=== PATIENT | female | born 1990 | race American Indian/Alaskan Native ===

== ENCOUNTER 2016-12-01 08:01 | Emergency (ER) | payer MEDICAID ==
[2016-12-01 09:01] LABS: Basophils % (Auto) 0.3 % (0.0-1.8); Eosinophils % (Auto) 6.4 % (0.0-4.3); Hematocrit 37.8 % (30.3-42.9); Hemoglobin 12.8 gm/dl (10.1-14.3); Mean Corpuscular HGB Conc 34 % (30-34); Mean Corpuscular Hemoglobin 30 pg (28-32); Mean Corpuscular Volume 88 fl (79-97); Platelet Count 262 K/mm3 (140-440); Red Cell Distribution Width 13.1 % (13.2-15.2); White Blood Count 8.8 K/mm3 (4.5-11.0)
[2016-12-01 09:10] LABS: Alanine Aminotransferase 12 units/L (7-56); Albumin 3.6 g/dL (3.9-5); Albumin/Globulin Ratio 1.2 %; Alkaline Phosphatase 50 units/L (35-129); Anion Gap 16 mmol/L; Blood Urea Nitrogen 5 mg/dL (7-17); Calcium 8.9 mg/dL (8.4-10.2); Carbon Dioxide 24 mmol/L (22-30); Chloride 97.7 mmol/L (98-107); Glucose 81 mg/dL (65-100); Lipase 15 units/L (13-60); Potassium 3.7 mmol/L (3.6-5.0); Sodium 134 mmol/L (137-145); Total Protein 6.7 g/dL (6.3-8.2)
[2016-12-01 09:40] LABS: Bacteria,Urine 1+ /HPF (Negative); Bilirubin,Urine NEG (Negative); Blood,Urine SM (Negative); Ketones,Urine 20 mg/dL (Negative); Leukocyte Esterase,Urine TR (Negative); Mucus,Urine FEW /HPF; Nitrite,Urine NEG (Negative); Protein,Urine <15 mg/dL mg/dL (Negative); Urobilinogen,Urine < 2.0 mg/dL (<2.0)
--- NOTE | 2016-12-01 15:05 | Ultrasound Report ---
OB ULTRASOUND History: Abdominal pain during . Technique: Transabdominal ultrasound with Doppler interrogation. Gestation: Single Position: Breech Amniotic Fluid: Within normal limits BREE = not measured cm Placenta: Anterior Placental Grade: 0 Heart Rate: 151 BPM Cervical length: 3.1 cm (Normal > 3 cm) BPD: 3.8 cm = 17 w 4 d HC: 14.3 cm = 17 w 4 d AC: 11.8 cm = 17 w 4 d FL: 2.5 cm = 17 w 4 d HC/AC Ratio: 1.21 Cephalic Index: 77.3 Estimated Weight: 201 grams EFW% = 45 percentile Clinical age = 17 w 4 d EDC: 05/07/17 US Gest. Age = 17 w 4 d EDC: 05/07/17
--- NOTE | 2016-12-01 16:46 | Emergency Department Report ---
ED General Adult HPI - General Chief complaint: Urogenital-Female Stated complaint: 17WKS PREG/CRAMPS/NAUSEA/LIGHT HEADED Time Seen by Provider: 12/01/16 16:43 Source: patient, RN notes reviewed Mode of arrival: Ambulatory Limitations: No Limitations - History of Present Illness Initial comments: This is a 26-year-old female. She is previously unknown to me. She is 4, para 0. She can't recall the name of her private PRODUCER DIRECTOR doctor. She indicates that she recently transitioned PRODUCER DIRECTOR physicians. She reports no chronic medical conditions. The patient presents to the ER with multiple complaints. The patient's first complaint is nausea, vomiting and dizziness. Patient describes an unintentional 8 pound weight loss over the past few weeks. She reports difficulty tolerating liquid feeds. She indicates that she has used Zofran, Phenergan, diclegis, with varying success. Patient describes mild lightheadedness, but has not lost consciousness. There is no chest pain. There is no shortness of breath. There is no severe headache. There is no loss of vision. There is no bladder or bowel retention or incontinence. She denies irritative and obstructive urinary symptoms. She denies vaginal bleeding. She is defecating normally. The patient does complain of mild headache which is associated with her nausea and vomiting. Headache is not sudden or thunderclap in nature. It did not reach maximal intensity within an hour. It is similar to prior headaches. This headache has been on and off for the past few weeks. The patient also complains of rectal pain, stating "my hemorrhoids are acting up." There is no leg pain. There is no leg swelling. No recent trips greater than 4 hours. No recent hospital admissions. No chest pain. No shortness of breath. At the close of her history and physical, the patient requested to eat as she is hungry. -: Gradual Location: head, pelvis (hemorrhoids) Severity scale (0 -10): 0 Consistency: intermittent Improves with: rest Worsens with: eating Associated Symptoms: headaches, nausea/vomiting, weakness. denies: confusion, chest pain, cough, diaphoresis - Related Data Home Medications Medication Instructions Recorded Confirmed Last Taken Pnv No.90/Iron Fum & Ps/FA/Dha 1 cap PO QDAY 12/01/16 12/01/16 Unknown [Provida Dha Capsule] Previous Rx's Medication Instructions Recorded Last Taken Type Doxylamine/Pyridoxine HCl 1 each PO QHS PRN #30 tablet. 12/01/16 Unknown Rx [Domo Mack 10-10 mg Tablet] Xiao Root [Xiao] 250 mg PO QID PRN #30 capsule 12/01/16 Unknown Rx Vit W-Ca,Fe,FA(<1 mg) 1 each PO QDAY #30 tablet 12/01/16 Unknown Rx [ Vitamins] Allergies Allergy/AdvReac Type Severity Reaction Status Date / Time No Known Allergies Allergy Unverified 12/01/16 08:24 ED Review of Systems ROS: Stated complaint: 17WKS PREG/CRAMPS/NAUSEA/LIGHT HEADED Other details as noted in HPI Constitutional: malaise. denies: fever Eyes: denies: vision change ENT: denies: epistaxis Respiratory: see HPI Cardiovascular: denies: chest pain Gastrointestinal: nausea Genitourinary: as per HPI Musculoskeletal: as per HPI Skin: denies: lesions Neurological: headache, weakness Psychiatric: anxiety ED Past Medical Hx - Past Medical History Previous Medical History?: Yes Additional medical history: hernia - Social History Smoking Status: Former Smoker Substance Use Type: None - Medications Home Medications: Home Medications Medication Instructions Recorded Confirmed Last Taken Type Doxylamine/Pyridoxine HCl 1 each PO QHS PRN #30 tablet. 12/01/16 Unknown Rx [Domo Mack 10-10 mg Tablet] Xiao Root [Xiao] 250 mg PO QID PRN #30 capsule 12/01/16 Unknown Rx Pnv No.90/Iron Fum & Ps/FA/Dha 1 cap PO QDAY 12/01/16 12/01/16 Unknown History [Provida Dha Capsule] Vit W-Ca,Fe,FA(<1 mg) 1 each PO QDAY #30 tablet 12/01/16 Unknown Rx [ Vitamins] ED Physical Exam - General Limitations: No Limitations General appearance: alert, in no apparent distress - Head Head exam: Present: atraumatic, normocephalic - Eye Eye exam: Present: normal appearance, PERRL, EOMI, other (visual acuity intact to finger counting, color perception, reading at a close distance). Absent: nystagmus - ENT ENT exam: Present: normal exam, normal orophraynx, mucous membranes moist, normal external ear exam - Neck Neck exam: Present: normal inspection, full ROM. Absent: tenderness, meningismus - Respiratory Respiratory exam: Present: normal lung sounds bilaterally. Absent: respiratory distress, wheezes, rales, rhonchi, stridor, chest wall tenderness, accessory muscle use, decreased breath sounds, prolonged expiratory - Cardiovascular Cardiovascular Exam: Present: regular rate, normal rhythm, normal heart sounds. Absent: bradycardia, tachycardia, irregular rhythm, systolic murmur, diastolic murmur, rubs, gallop - GI/Abdominal GI/Abdominal exam: Present: soft, normal bowel sounds. Absent: distended, tenderness, guarding, rebound, rigid, pulsatile mass - Rectal Rectal exam: Present: normal inspection, other (no obvious large hemorrhoids noted externally. There is no obvious bleeding noted. During the rectal examination, I am escorted by nurse Cristal Chiang) - Extremities Exam Extremities exam: Present: normal inspection, full ROM, normal capillary refill. Absent: tenderness, pedal edema, joint swelling, calf tenderness - Back Exam Back exam: Present: normal inspection, full ROM. Absent: tenderness, CVA tenderness (R), CVA tenderness (L), muscle spasm, paraspinal tenderness, vertebral tenderness - Neurological Exam Neurological exam: Present: alert, oriented X3, normal gait (normal gait, normal tandem gait, negative Romberg examination, no pronator drift, normal heel -to-cordero. No pass pointing.), other (Extraocular movements intact. Tongue midline. No facial droop. Facial sensation intact to light touch in the V1, V2 , V3 distribution bilaterally. 5 and 5 strength in 4 extremities.. Sensation is intact to light touch in 4 extremities.). Absent: motor sensory deficit - Psychiatric Psychiatric exam: Present: normal affect, normal mood - Skin Skin exam: Present: warm, dry, intact, normal color. Absent: rash ED Course Vital Signs 12/01/16 12/01/16 12/01/16 08:24 14:30 18:39 Temperature 98.1 F Pulse Rate 87 69 Respiratory 16 18 18 Rate Blood Pressure 120/70 Blood Pressure 112/56 100/65 [Left] O2 Sat by Pulse 100 100 100 Oximetry - Reevaluation(s) Reevaluation #1: 12/01/16 17:17 Differential diagnosis: Second trimester , nausea and vomiting of , hemorrhoids, mild dehydration Assessment and plan: 26-year-old female with a number of nonspecific complaints. She is afebrile, with reassuring vital signs, has a GCS of 15, with an NIH score of 0. Initial plan is to give the patient IV fluids and IV Zofran, however she is endorsing that she wants to eat. Therefore, she will be given oral acetaminophen, oral Zofran, and given oral challenge. The patient is able to eat without difficulty, she therefore does not require IV fluids or IV medication, and is suitable to follow-up with an outpatient PRODUCER DIRECTOR doctor. Patient does not have any obvious hemorrhoids on my direct examination, the anus is nontender, the protein is nontender, she can start sitz baths, and follow up with an outpatient PRODUCER DIRECTOR doctor. No chest pain, no shortness of breath, no hypoxia, no unilateral leg swelling, no history of DVT or thromboembolic disease. Reevaluation #2: 12/01/16 17:39 patient was able to eat without difficulty. Vital signs remained stable. Repeat neurologic examination unremarkable. No indication for IV therapy at this time. Patient will be discharged ED Medical Decision Making - Lab Data Result diagrams: 12/01/16 08:39 12/01/16 08:39 Vital Signs 12/01/16 12/01/16 08:24 14:30 Temperature 98.1 F Pulse Rate 87 69 Respiratory 16 18 Rate Blood Pressure 120/70 Blood Pressure 112/56 [Left] O2 Sat by Pulse 100 100 Oximetry Lab Results 12/01/16 12/01/16 12/01/16 Range/Units 08:39 08:39 09:19 WBC 8.8 (4.5-11.0) K/mm3 RBC 4.30 (3.65-5.03) M/mm3 Hgb 12.8 (10.1-14.3) gm/dl Hct 37.8 (30.3-42.9) % MCV 88 (79-97) fl MCH 30 (28-32) pg MCHC 34 (30-34) % RDW 13.1 L (13.2-15.2) % Plt Count 262 (140-440) K/mm3 Lymph % (Auto) 19.6 (13.4-35.0) % [place] % (Auto) 8.0 H (0.0-7.3) % Eos % (Auto) 6.4 H (0.0-4.3) % Baso % (Auto) 0.3 (0.0-1.8) % Lymph # 1.7 (1.2-5.4) K/mm3 [place] # 0.7 (0.0-0.8) K/mm3 Eos # 0.6 H (0.0-0.4) K/mm3 Baso # 0.0 (0.0-0.1) K/mm3 Seg Neutrophils % 65.7 (40.0-70.0) % Seg Neutrophils # 5.8 (1.8-7.7) K/mm3 Sodium 134 L (137-145) mmol/L Potassium 3.7 (3.6-5.0) mmol/L Chloride 97.7 L (98-107) mmol/L Carbon Dioxide 24 (22-30) mmol/L Anion Gap 16 mmol/L BUN 5 L (7-17) mg/dL Creatinine 0.5 L (0.7-1.2) mg/dL Estimated GFR > 60 ml/min BUN/Creatinine Ratio 10.00 % Glucose 81 (65-100) mg/dL Calcium 8.9 (8.4-10.2) mg/dL Total Bilirubin 0.20 (0.1-1.2) mg/dL AST 13 (5-40) units/L ALT 12 (7-56) units/L Alkaline Phosphatase 50 (35-129) units/L Total Protein 6.7 (6.3-8.2) g/dL Albumin 3.6 L (3.9-5) g/dL Albumin/Globulin Ratio 1.2 % Lipase 15 (13-60) units/L Urine Color Yellow (Yellow) Urine Turbidity Slightly-cloudy (Clear) Urine pH 7.0 (5.0-7.0) Ur Specific [place] 1.014 (1.003-1.030) Urine Protein <15 mg/dl (Negative) mg/dL Urine Glucose (UA) Neg (Negative) mg/dL Urine Ketones 20 (Negative) mg/dL Urine Blood Sm (Negative) Urine Nitrite Neg (Negative) Ur Reducing Substances Not Reportable Urine Bilirubin Neg (Negative) Urine Ictotest Not Reportable Urine Urobilinogen < 2.0 (<2.0) mg/dL Ur Leukocyte Esterase Tr (Negative) Urine WBC (Auto) 1.0 (0.0-6.0) /HPF Urine RBC (Auto) 3.0 (0.0-6.0) /HPF U Epithel Cells (Auto) 20.0 H (0-13.0) /HPF Urine Bacteria (Auto) 1+ (Negative) /HPF Urine Mucus Few /HPF Urine HCG, Qual Positive A (Negative) - EKG Data -: EKG Interpreted by Me - EKG Data 12/01/16 17:39 normal sinus, 60 bpm, normal axis, normal intervals, not consistent with STEMI. - Radiology Data Radiology results: report reviewed, image reviewed Obstetrics ultrasound demonstrates intrauterine , 17 weeks, 4 days, appropriate heart rate, no obvious bleeding Critical care attestation.: If time is entered above; I have spent that time in minutes in the direct care of this critically ill patient, excluding procedure time. ED Disposition Clinical Impression: Nausea and vomiting during Disposition: DISCHARGED TO HOME OR SELFCARE Is pt being admited?: No Does the pt Need Aspirin: No Condition: Stable Instructions: Hyperemesis Gravidarum (ED) Additional Instructions: Take the medications as directed. Follow up with an PRODUCER DIRECTOR doctor as soon as possible to continue care. Avoid consumption of heavy and spicy foods. Take the medications as directed. Return to the ER right away with severe pain , shortness of breath, intractable nausea or vomiting, severe abdominal pain, inability to tolerate liquid feeds, change in mental status, confusion. use a sitz bath as directed Prescriptions: Doxylamine/Pyridoxine HCl [Domo Mack 10-10 mg Tablet] 1 each PO QHS PRN #30 tablet. PRN Reason: Nausea Xiao Root [Xiao] 250 mg PO QID PRN #30 capsule PRN Reason: Nausea Vit W-Ca,Fe,FA(<1 mg) [ Vitamins] 1 each PO QDAY #30 tablet Referrals: PRIMARY CARE, [Primary Care Provider] - 3-5 Days [facility] [Provider Group] - 3-5 Days [facility] [Provider Group] - 3-5 Days [facility] [Provider Group] - 3-5 Days
[2016-12-01] MEDS ORDERED: ZOFRAN IV ONE (16:57)
[2016-12-01] MEDS ORDERED: D5/0.45NS 1,000 ML IV SCH ×2 (17:00)
[2016-12-01] MEDS ORDERED: TYLENOL PO ONE (17:01)
[2016-12-01] MEDS ORDERED: ZOFRAN ODT ONE ×2 (17:03→17:15)
[2016-12-01] MEDS ORDERED: ZOFRAN ODT PO ONE (17:44)
[2016-12-01 18:40] VITALS: BP 100/65
== END 2016-12-01 18:39 | disposition home or self-care (01) ==
LOC: ED 08:01
DX: O21.9 Vomiting of pregnancy, unspecified (principal); R11.0 Nausea; O99.332 Smoking (tobacco) complicating pregnancy, second trimester; Z3A.17 17 weeks gestation of pregnancy
CPT/HCPCS: 36415; 76805; 80053; 81001; 81025; 83690; 85025; 93005; 93010; 99284; Q0162